=== PATIENT | female | born 1995 | race Caucasian/White ===

== ENCOUNTER 2017-07-17 04:27 | Emergency (ER) | payer OTHER ==
[2017-07-17] MEDS ORDERED: NORMAL SALINE 1000 ML 1,000 ML IV ONE ×2 (05:05→07:14)
[2017-07-17] MEDS ORDERED: ACETAMINOPHEN 325 MG TABLET PO ONE (05:05)
--- NOTE | 2017-07-17 05:50 | ER Document Report ---
ED Fever - General Mode of Arrival: Medic Information source: Patient TRAVEL OUTSIDE OF THE [place] IN LAST 30 DAYS: No <EMORY SANABRIA - Last Filed: 07/17/17 07:28> <FRANCISCO REAL - Last Filed: 07/17/17 14:39> - General Chief Complaint: Fever Stated Complaint: NAUSEA Time Seen by Provider: 07/17/17 04:42 Notes: 22-year-old female patient presents with chief complaint of fever with vomiting. Patient reports that she had a section on 07/12/17 at [facility]. Patient reports that when she was discharged she had a fever of 99.9. Patient reports that over the past 5 days she has persisted with a low-grade fever however today hers fever went as high as 102 and she started vomiting. Patient does report some pain with urination as well as low back pain. Patient is breast-feeding however patient denies any breast tenderness other than at the areola bilaterally. Patient denies any abdominal pain, chest pain or shortness of breath. Patient reports that she had gestational hypertension with her and that as a child she had a surgery for a bladder reflux at age 5. Patient reports that her vaginal bleeding is scant and is a dark red in color with no clots. (EMORY SANABRIA) Patient states she is laboring for 28 hours and then did position of baby she went for an emergent . Denies that she her baby was in distress at time of decision for . Denies minimal vaginal bleeding. Denies any breast tenderness or redness. Denies any recent coughing, sore throat, headache associated with her fever. (FRANCISCO REAL) - Related Data Allergies/Adverse Reactions: cefazolin Allergy (Verified 07/17/17 04:43) Past Medical History - General Information source: Patient - Social History Smoking Status: Never Smoker Frequency of alcohol use: None Drug Abuse: None Family History: Reviewed & Not Pertinent Patient has suicidal ideation: No Patient has homicidal ideation: No Renal/ Medical History: Denies: Hx Peritoneal Dialysis Past Surgical History: Reports: Hx Section - Immunizations Immunizations up to date: Yes Hx Diphtheria, Pertussis, Tetanus Vaccination: Yes <EMORY SANABRIA - Last Filed: 07/17/17 07:28> Review of Systems - Review of Systems Constitutional: See HPI EENT: No symptoms reported Cardiovascular: No symptoms reported Respiratory: No symptoms reported Gastrointestinal: No symptoms reported Genitourinary: No symptoms reported Female Genitourinary: No symptoms reported Musculoskeletal: No symptoms reported Skin: No symptoms reported Hematologic/Lymphatic: No symptoms reported Neurological/Psychological: No symptoms reported <EMORY SANABRIA - Last Filed: 07/17/17 07:28> Physical Exam <EMORY SANABRIA - Last Filed: 07/17/17 07:28> <FRANCISCO REAL - Last Filed: 07/17/17 14:39> - Vital signs Vitals: Resp Pulse Ox 27 H 98 07/17/17 04:29 07/17/17 04:29 - Notes Notes: PHYSICAL EXAMINATION: GENERAL: Otherwise healthy adult female in no acute distress. HEAD: Atraumatic, normocephalic. EYES: Pupils equal round and reactive to light, extraocular movements intact, conjunctiva are normal. ENT: Nares patent, oropharynx clear without exudates. Moist mucous membranes. NECK: Normal range of motion, supple without lymphadenopathy LUNGS: Breath sounds clear to auscultation bilaterally and equal. No wheezes rales or rhonchi. HEART: Regular rate and rhythm without murmurs ABDOMEN: Soft, nontender, nondistended abdomen. No guarding, no rebound. No masses appreciated. Low transverse abdominal incision well approximated appears to be healing well with no erythema, no swelling, no drainage. Female : No CVA tenderness on palpation. Musculoskeletal: Low back pain bilaterally. Normal range of motion, no pitting or edema. No cyanosis. NEUROLOGICAL: Cranial nerves grossly intact. Normal speech, normal gait. Normal sensory, motor exams PSYCH: Normal mood, normal affect. SKIN: Warm, Dry, normal turgor, no rashes or lesions noted. Bilateral breasts without any erythema or warmth. (EMORY SANABRIA) Course - Laboratory Result Diagrams: 07/17/17 05:31 07/17/17 05:31 <EMORY SANABRIA - Last Filed: 07/17/17 07:28> - Laboratory Result Diagrams: 07/17/17 09:09 07/17/17 05:31 - EKG Interpretation by [place] EKG shows normal: Sinus rhythm Rate: Tachycardia Rhythm: NSR - NO STEMI <FRANCISCO REAL - Last Filed: 07/17/17 14:39> - Re-evaluation Re-evalutation: 22-year-old non-toxic female presents with complaints of fever, tachycardia, low back pain, mild dysuria and vomiting 5 days post . Patient reports that she has had a low-grade fever since she was discharged from [facility] 5 days ago. Patient's abdominal exam is unremarkable, patient has no guarding, no rebound and no tenderness. Low transverse C- section incision appears to be healing well and was closed with Dermabond. CBC reveals hemoglobin of 8.1, hematocrit 24.3, no leukocytosis. VBG is unremarkable, lactic is 1.1. Comprehensive metabolic panel is otherwise unremarkable. Urinalysis with large leukocytes, >182 WBC's and WBC clumps. On re-evaluation, patient mildly diaphoretic and tachycardic with a rate of 112 despite 1 L fluid resuscitation with normal saline and antipyretics. Will start patient on Unasyn 3 g to treat her urinary tract infection as patient is allergic to cephalosporins. Will also order CT abdomen pelvis with IV contrast to evaluate for abscess. Patient will be handed off to Stephanie Real. (EMORY SANABRIA) Bedside disposition given at 0715. Patient remains tachycardic at 125 with a temperature of 100.3 which should not cause her to be this tachycardic. Will order a CTA to evaluate for PE and or dissecting aortic aneurysm along with CT abdomen pelvis to evaluate for any endometrial and/or intra-abdominal abscess. Patient does not have an elevated WBC. No previous CBC to establish a baseline for her anemia. Patient given altogether 2 L of fluid will repeat CBC. Patient is in no distress at this time. Will hold IV antibiotic at this time. Initial set of cardiac enzymes showed a troponin of 0.053 with a CKMB of 0.69. X-ray negative. BNP 453. LDH 481. Consulted with DEISI KilpatrickGYRimma at [facility] where she delivered 5 days ago, patient's H&H is baseline according to records. Like to follow-up on patient after CT findings to see if she needs to be transferred to [facility] for further evaluation by her OB/ [facility] team. CTA abdomen pelvis negative for any acute findings such as abscess free fluid, bowel obstruction, diverticulitis, appendicitis etc. CT negative for PE, dissecting aortic aneurysm or pneumonia but did show left basilar atelectasis. repeat troponin decreased at 0 0.041 with a CKMB of 1.18. Altered with Dr. Hussein again at 1400 discussed pertinent radiological, diagnostic and clinical findings. This being patient's first , along with the tachycardic and a fever this morning of 102 with unknown origin, he would like patient to be transferred to any of the hospital for further evaluation of her fever as well as an unassociated tachycardia that is unrelated to her fever patient remains afebrile, vitals stable and in no distress. (FRANCISCO REAL) - Vital Signs Vital signs: Temp Pulse Resp BP Pulse Ox 98.5 F 15 120/72 100 07/17/17 10:29 07/17/17 10:19 07/17/17 10:19 07/17/17 10:19 - Laboratory Laboratory results interpreted by me: 07/17/17 07/17/17 07/17/17 05:31 05:31 05:31 RBC 3.12 L Hgb 8.1 L Hct 24.3 L MCV 78 L MCH 25.9 L RDW 15.8 H Seg Neutrophils % 86.5 H Lymphocytes % 7.3 L Retic Count (auto) VBG pH 7.45 H VBG pCO2 31.0 L Chloride 110 H Carbon Dioxide 20 L Calcium 7.8 L Total Bilirubin 0.1 L NT-Pro-B Natriuret Pep Total Protein 4.7 L Albumin 2.3 L Urine Blood Ur Leukocyte Esterase Urine Ascorbic Acid 07/17/17 07/17/17 07/17/17 05:31 05:31 06:25 RBC Hgb Hct MCV MCH RDW Seg Neutrophils % Lymphocytes % Retic Count (auto) 3.19 H VBG pH VBG pCO2 Chloride Carbon Dioxide Calcium Total Bilirubin NT-Pro-B Natriuret Pep 463 H Total Protein Albumin Urine Blood LARGE H Ur Leukocyte Esterase LARGE H Urine Ascorbic Acid 20 H 07/17/17 09:09 RBC 3.41 L Hgb 8.8 L Hct 26.3 L MCV 77 L MCH 25.7 L RDW 15.7 H Seg Neutrophils % 81.9 H Lymphocytes % 9.2 L Retic Count (auto) VBG pH VBG pCO2 Chloride Carbon Dioxide Calcium Total Bilirubin NT-Pro-B Natriuret Pep Total Protein Albumin Urine Blood Ur Leukocyte Esterase Urine Ascorbic Acid Discharge <EMORY SANABRIA - Last Filed: 07/17/17 07:28> <FRANCISCO REAL - Last Filed: 07/17/17 14:39> - Discharge Clinical Impression: fever, Tachycardia Condition: Good Disposition: [facility]
[2017-07-17 05:52] LABS: ABSOLUTE LYMPHOCYTES (AUTO) 0.5 10^3/uL (0.5-4.7); ABSOLUTE MONOCYTES (AUTO) 0.4 10^3/uL (0.1-1.4); ABSOLUTE NEUT (AUTO) 6.5 10^3/uL (1.7-8.2); BASOPHILS % (AUTO) 0.1 % (0-2); EOSINOPHILS % (AUTO) 0.6 % (0-6); HEMATOCRIT 24.3 % (36.0-47.0); HEMOGLOBIN 8.1 g/dL (12.0-15.5); LYMPHOCYTES % (AUTO) 7.3 % (13-45); MEAN CORPUSCULAR HEMOGLOBIN 25.9 pg (27.0-33.4); MEAN CORPUSCULAR HGB CONC 33.2 g/dL (32.0-36.0); MEAN CORPUSCULAR VOLUME 78 fl (80-97); MONOCYTES % (AUTO) 5.5 % (3-13); PLATELET COUNT 276 10^3/uL (150-450); RED BLOOD COUNT 3.12 10^6/uL (3.72-5.28); RED CELL DISTRIBUTION WIDTH 15.8 % (11.5-14.0); SEGMENTED NEUTROPHILS % (AUTO) 86.5 % (42-78); TOTAL CELLS COUNTED % (AUTO) 100 %; WHITE BLOOD COUNT 7.5 10^3/uL (4.0-10.5)
--- NOTE | 2017-07-17 06:38 | RADIOLOGY REPORT (SQ) ---
EXAM DESCRIPTION: XR CHEST 2 VIEWS CLINICAL HISTORY: 22 years Female, post-op fever COMPARISON: None. FINDINGS: Adequate lung volume, clear parenchyma, normal cardiac silhouette, and intact bony thorax. IMPRESSION: No acute cardiopulmonary findings.
[2017-07-17 06:40] LABS: ALANINE AMINOTRANSFERASE 39 U/L (9-52); ALBUMIN 2.3 g/dL (3.5-5.0); ALKALINE PHOSPHATASE 97 U/L (38-126); ANION GAP 9 (5-19); ASPARTATE AMINO TRANSFERASE 22 U/L (14-36); BILIRUBIN,DIRECT 0.1 mg/dL (0.0-0.4); BILIRUBIN,TOTAL 0.1 mg/dL (0.2-1.3); BLOOD UREA NITROGEN 8 mg/dL (7-20); CALCIUM 7.8 mg/dL (8.4-10.2); CARBON DIOXIDE 20 mmol/L (22-30); CHLORIDE 110 mmol/L (98-107); GLUCOSE 87 mg/dL (75-110); POTASSIUM 3.8 mmol/L (3.6-5.0); SODIUM 139.2 mmol/L (137-145); TOTAL PROTEIN 4.7 g/dL (6.3-8.2)
[2017-07-17 06:44] LABS: VENOUS BLOOD BASE EXCESS -3.1 mmol/L; VENOUS BLOOD HCO3 20.8 mmol/L (20-32); VENOUS BLOOD PH 7.45 (7.30-7.42)
[2017-07-17 06:46] LABS: APPEARANCE,URINE CLOUDY; BILIRUBIN,URINE NEGATIVE (NEGATIVE); COLOR,URINE YELLOW; GLUCOSE, URINE NEGATIVE (NEGATIVE); KETONES,URINE NEGATIVE (NEGATIVE); LEUKOCYTE ESTERASE,URINE LARGE (NEGATIVE); NITRITE,URINE NEGATIVE (NEGATIVE); PROTEIN,URINE NEGATIVE (NEGATIVE); URINE SPECIFIC GRAVITY 1.013; UROBILINOGEN,URINE NEGATIVE mg/dL (<2.0)
[2017-07-17] MEDS ORDERED: AMPICILLIN SOD/SULBACTAM 3 GM VIAL IV ONE (07:13)
[2017-07-17 08:27] LABS: ABSOLUTE RETICS # 0.098 10^6/uL (0.028-0.122); RETICULOCYTE COUNT (AUTO) 3.19 % (0.66-2.85)
[2017-07-17 08:29] LABS: INTERNATIONAL RATION (INR) 0.94; PROTHROMBIN TIME 13.1 SEC (11.4-15.4)
[2017-07-17 08:30] LABS: PARTIAL THROMBOPLASTIN TIME 32.7 SEC (23.5-35.8)
[2017-07-17 08:53] LABS: CREATINE KINASE MB 0.69 ng/mL (<4.55)
[2017-07-17 08:57] LABS: TROPONIN I 0.053 ng/mL
[2017-07-17] MEDS ORDERED: ASPIRIN 81 MG TABLET, CHEWABLE PO ONE (08:58)
[2017-07-17 09:36] LABS: ABSOLUTE LYMPHOCYTES (AUTO) 0.9 10^3/uL (0.5-4.7); ABSOLUTE MONOCYTES (AUTO) 0.8 10^3/uL (0.1-1.4); ABSOLUTE NEUT (AUTO) 8.2 10^3/uL (1.7-8.2); BASOPHILS % (AUTO) 0.2 % (0-2); EOSINOPHILS % (AUTO) 0.2 % (0-6); HEMATOCRIT 26.3 % (36.0-47.0); HEMOGLOBIN 8.8 g/dL (12.0-15.5); LYMPHOCYTES % (AUTO) 9.2 % (13-45); MEAN CORPUSCULAR HEMOGLOBIN 25.7 pg (27.0-33.4); MEAN CORPUSCULAR HGB CONC 33.3 g/dL (32.0-36.0); MEAN CORPUSCULAR VOLUME 77 fl (80-97); MONOCYTES % (AUTO) 8.5 % (3-13); PLATELET COUNT 300 10^3/uL (150-450); RED BLOOD COUNT 3.41 10^6/uL (3.72-5.28); RED CELL DISTRIBUTION WIDTH 15.7 % (11.5-14.0); SEGMENTED NEUTROPHILS % (AUTO) 81.9 % (42-78); TOTAL CELLS COUNTED % (AUTO) 100 %
--- NOTE | 2017-07-17 10:40 | RADIOLOGY REPORT (SQ) ---
EXAM DESCRIPTION: CTA CHEST COMPLETED DATE/TIME: 07/17/2017 10:11 am REASON FOR STUDY: tachycardia, recent COMPARISON: None. TECHNIQUE: CT scan of the chest performed using helical scanning technique with dynamic intravenous contrast injection. Images reviewed with lung, soft tissue and bone windows. Reconstructed coronal and sagittal MPR images reviewed. Additional 3 dimensional post-processing performed to develop Maximal Intensity Projection images (VT P). All images stored on PACS. All CT scanners at this facility use dose modulation, iterative reconstruction, and/or weight based d osing when appropriate to reduce radiation dose to as low as reasonably achievable (ALARA). [facility]: Dose Right [facility]: CareDose [facility]: Dose Right [facility]: Teradose 4D [facility]: Erbix - [employer] CONTRAST TYPE AND DOSE: contrast/concentration: Isovue 370.00 mg/ml; Total Contrast Delivered: 92.0 ml; Total Saline Delivered: 145.1 ml RENAL FUNCTION: BUN 8 creatinine 0.7 RADIATION DOSE: CT Rad equipment meets quality standard of care and radiation dose reduction techniq ues were employed. CTDIvol: 17.2 - 26.8 mGy. DLP: 3317 mGy-cm. . LIMITATIONS: None. FINDINGS: LUNGS AND PLEURA: Subsegmental airspace disease left lower lobe most likely atelectasis. No effusions. AORTA AND GREAT VESSELS: No aneurysm. No dissection. HEART: No pericardial effusion. No significant coronary artery calcifications. PULMONARY ARTERIES: No emboli visualized in the main pulmonary arteries or the segmental branches. HILAR AND MEDIASTINAL STRUCTURES: No identified masses or abnormal nodes. HARDWARE: None in the chest. UPPER ABDOMEN: No significant findings. Limited exam. THYROID AND OTHER SOFT TISSUES: No masses. No adenopathy. BONES: No acute or significant finding. 3D MIPS: Confirm above findings. OTHER: No other significant finding. IMPRESSION: No PE. Left basilar atelectasis. COMMENT: Quality ID # 436: Final reports with documentation of one or more dose reduction techniques (e.g., Automated exposure control, adjustment of the mA and/or kV according to patient size, use of iterative reconstruction technique) TECHNICAL DOCUMENTATION: JOB ID: [id number] [employer]- All Rights Reserved Reading location - IP/workstation name: [email or web address]
--- NOTE | 2017-07-17 10:45 | RADIOLOGY REPORT (SQ) ---
EXAM DESCRIPTION: CT ABD/PELVIS WITH IV ONLY COMPLETED DATE/TIME: 07/17/2017 10:11 am REASON FOR STUDY: post-op with fever eval for abscess COMPARISON: None. TECHNIQUE: CT scan of the abdomen and pelvis performed using helical scanning technique with dynamic intravenous contrast injection. No oral contrast. Images reviewed with lung, soft tissue, and bone windows. Reconstructed coronal and sagittal MPR images reviewed. Delayed images for evaluation of the urinary system also acquired. All images stored on PACS. All CT scanners at this facility use dose modulation, iterative reconstruction, and/or weight based d osing when appropriate to reduce radiation dose to as low as reasonably achievable (ALARA). [facility]: Dose Right [facility]: CareDose [facility]: Dose Right [facility]: Teradose 4D [facility]: Data Elite CONTRAST TYPE AND DOSE: See separate report of the same date. RENAL FUNCTION: See separate report of the same date. RADIATION DOSE: . LIMITATIONS: None. FINDINGS: LOWER CHEST: See separate report of the CT of the chest. LIVER: Normal size. No masses. No dilated ducts. SPLEEN: Normal size. No focal lesions. PANCREAS: No masses. No significant calcifications. No adjacent inflammation or peripancreatic fluid collections. Pancreatic duct not dilated. GALLBLADDER: No identified stones by CT criteria. No inflammatory changes to suggest cholecystitis. ADRENAL GLANDS: No significant masses or asymmetry. RIGHT KIDNEY AND URETER: No solid masses. No significant calcifications. No hydronephrosis or hyd roureter. LEFT KIDNEY AND URETER: No solid masses. No significant calcifications. No hydronephrosis or hydr oureter. AORTA AND VESSELS: No aneurysm. No dissection. Renal arteries, SMA, celiac without stenosis. RETROPERITONEUM: No retroperitoneal adenopathy, hemorrhage or masses. BOWEL AND PERITONEAL CAVITY: No masses or inflammatory changes. No free fluid or peritoneal masses. APPENDIX: Not visualized. PELVIS: Expected enlarged uterus with small amount of gas and fluid in the lower uterine segment lemuel uring about 2 x 3 cm. No extrauterine fluid collection. ABDOMINAL WALL: Expected subcutaneous gas anterior abdominal wall status post recent . Rect us diastases. Small anterior abdominal wall hernia containing fat. BONES: No significant or acute findings. OTHER: No other significant finding. IMPRESSION: Expected postoperative changes from recent section. Small amount of gas and fl uid in the lower uterine segment. No extra uterine gas fluid collection. No hydronephrosis. TECHNICAL DOCUMENTATION: JOB ID: [id number] Quality ID # [id number]: Final reports with documentation of one or more dose reduction techniques (e.g., Au tomated exposure control, adjustment of the mA and/or kV according to patient size, use of iterative reconstruction technique) 2010 [employer]- All Rights Reserved Reading location - IP/workstation name: [email or web address]
[2017-07-17] MEDS ORDERED: NORMAL SALINE 1000 ML 1,000 ML IV PRN (11:37)
[2017-07-17 13:21] LABS: CREATINE KINASE MB 1.18 ng/mL (<4.55); TROPONIN I 0.041 ng/mL
[2017-07-17] MEDS ORDERED: SULFAMETHOXAZOLE/TRIMETHOPRIM 800-160 MG TABLET PO ONE (14:06)
--- NOTE | 2017-07-17 14:45 | EKG REPORT ---
SEVERITY:- NORMAL ECG - SINUS RHYTHM : Confirmed by: Keo Paagn MD 17-Jul-2017 14:44:26
[2017-07-17 18:00] VITALS: BP 128/76
== END 2017-07-17 18:00 ==
LOC: ER 04:27
DX: O86.4 Pyrexia of unknown origin following delivery (principal); O90.9 Complication of the puerperium, unspecified; R11.2 Nausea with vomiting, unspecified; R00.0 Tachycardia, unspecified; M54.5 Low back pain
CPT/HCPCS: 93005; 99285; 96360; 96361; 86900; 86901; 36415; 87040; 87086; 82553; 86850; 82550; 83615; 85025; 85610; 85730; 87088; 85045; 80053; 81001; 84484; 87186; 82803; 83605; 83880; 71046; 71275; 74177; 93010; J7030